=== PATIENT | female | born 1960 | race Caucasian/White ===

== ENCOUNTER 2018-05-16 14:09 | Emergency (ER) | payer SELFPAY ==
[2018-05-16 14:10] VITALS: BP 170/80; PULSE 124; RESP 16; TEMP 35.9; O2SAT 96; BMI 25.0
--- NOTE | 2018-05-16 14:19 | CT_ITS ---
STUDY: CT ABDOMEN AND PELVIS WITH CONTRAST REASON FOR EXAM: Female, 58 years old. Right rib pain following a fall. RADIATION DOSAGE (If Supplied By Facility): CTDIvol = ( 9.20 ) mGy, DLP = ( 642.32 ) mGycm TECHNIQUE: Transaxial images were obtained from the dome of the diaphragm to the symphysis pubis without oral contrast. 100 ml of Isovue 300 contrast was administered. Sagittal and coronal images were reconstructed. Individualized dose optimization techniques were used for this CT. COMPARISON: None. FINDINGS: Increased markings at the lung bases with areas of confluence suggestive of atelectasis. With the patient's history of trauma, this may represent contusions. The visualized portions of the heart are within normal limits. There is decreased attenuation of the liver consistent with steatosis. Normal gallbladder and extrahepatic biliary system. Normal spleen. Normal pancreas. Normal bilateral adrenal glands. Mild right hydronephrosis and proximal right hydroureter. Ureteral pelvic junction obstruction should Normal left kidney. Normal visualized stomach. Normal small intestine. There are multiple colonic diverticula consistent with diverticulosis. The appendix is visualized and appears normal. Normal abdominal aorta. Normal inferior vena cava. Normal retroperitoneum. Normal urinary bladder. There is absence of the uterus consistent with a prior hysterectomy. There is a small umbilical hernia containing fat. There are mild degenerative changes of the visualized lumbar spine. Nondisplaced fracture of the right 11th rib posterior lateral. CT/Abdomen/Pelvis W IV Cont ONLY IMPRESSION: Nondisplaced fracture involving the posterior-lateral aspect of the right 11th rib. Findings suggestive pulmonary atelectasis and/or contusions. Fatty infiltration of the liver. Electronically Signed: Jim Pantoja MD at 15:53 EST Tel [phone], Service support ,
--- NOTE | 2018-05-16 14:19 | CT_ITS ---
STUDY: CT CHEST WITH CONTRAST REASON FOR EXAM: Female, 58 years old. Right-sided rib pain following a fall. RADIATION DOSAGE (If Supplied By Facility): CTDIvol = ( 9.20 ) mGy, DLP = ( 642.32 ) mGycm TECHNIQUE: Transaxial imaging was performed following intravenous administration of 100 ml of Isovue 300 contrast material. Multiplanar coronal and sagittal images were reformatted. Individualized dose optimization techniques were used for this CT. COMPARISON: None. FINDINGS: Increased markings in the lower lobes with areas of confluence suggestive of atelectasis. With the patient's history of trauma, this may represent contusions. There is no demonstrated pleural abnormality. Normal heart and pericardium. Normal mediastinum. Normal hilar regions. Normal enhanced pulmonary arteries. Normal aorta arch and descending thoracic aorta. There are degenerative changes of the thoracic spine. Nondisplaced fracture involving the posterior-lateral aspect of the right 11th rib. There is no demonstrated abnormality of the visualized upper abdomen. CT/Chest WITH Contrast IMPRESSION: Increased markings at the lung bases with areas of confluence suggestive of possible atelectasis and/or contusions. Nondisplaced fracture along the posterior lateral aspect of the right 11th rib. Electronically Signed: Jim Pantoja MD at 15:55 EST Tel [phone], Service support ,
--- NOTE | 2018-05-16 14:22 | ED.VISSUMM ---
- ER Visit Summary Date of Service: 05/16/18 Chief Complaint: Fall History of Present Illness: The patient is a 58 F presenting after fall. This occurred on May 07. She states that she was looking at a house that was for sale. She fell down half a flight of steps. She lost her footing. She did hit her head but she did not lose consciousness. She complains of right thumb pain, right sided rib pain and abdominal pain. She has been taking ibuprofen at home. She has an appointment with her primary care physician on . Physical Examination: Vitals are stable. Patient is afebrile. Alert no acute distress. HEENT exam is unremarkable. Neck is nontender Lungs are clear and equal bilaterally. Right lateral chest wall tenderness with no crepitus Heart is regular and tachycardic Abdomen is right upper quadrant tenderness no rebound or guarding Extremities right thumb diffuse tenderness with painful range of motion Skin is warm and dry. No focal neurologic deficit. Remainder of exam is unremarkable. Emergency Department Course and Treatment: Right hand x-ray shows no acute fractures seen. Old avulsion fracture of the ulnar styloid. Patient was given a thumb spica splint. CT chest/abdomen pelvis shows increased markings at the lung bases with areas of confluence suggestive of possible atelectasis and/or contusions. Nondisplaced fracture along the posterior lateral aspect of the right 11th rib. Patient was given an incentive spirometer. She was given morphine, Zofran, IV fluids. Discussed with Dr. Garrido who recommends repeat imaging in 4-[address] Thorne covering for Dr Bryant and patient will follow-up in the office at scheduled appointment on . She is given a prescription for Daniel. She is advised to return to ED if worsening complaints. Disposition: Discharge home Impression: Right nondisplaced 11th rib fracture status post fall This note was generated with [employer] dictation software. It may contain incorrect words, spelling, and punctuation that were not noted in review of the chart prior to signing ED Disposition - Plan for ED Patient: Chief Complaint: Chest Other Instructions: ED Fx Rib Prescriptions: Hydrocodone Bitart/Apap 5-325 [[place] 5MG-325MG] 1 tablet PO Q6H PRN PRN 3 Days #10 tablet PRN Reason: Pain Referrals: Luis Bryant MD [Primary Care Provider] -
[2018-05-16 14:56] LABS: Anion Gap 12 (5-15); BUN 6 mg/dL (7-18); BUN/Creat Ratio 7.3 RATIO (10-20); Calcium,Total 9.2 mg/dL (8.5-10.1); Chloride 109 mmol/L (98-107); Creatinine, Serum 0.82 mg/dL (0.55-1.02); EST Glomerular Filtration Rate 76 mL/min (>60); Est Glom Filt Rate - Afr Amer 92 mL/min (>60); Estimated Creatinine Clearance 64.26 ml/min; Glucose 124 mg/dL (74-106); Potassium 3.4 mmol/L (3.5-5.1); Sodium Level 145 mmol/L (136-145)
--- NOTE | 2018-05-16 15:14 | RAD_ITS ---
STUDY: X-RAY - RIGHT HAND REASON FOR EXAM: Female, 58 years old. Pain at the first metacarpophalangeal joint following a fall. TECHNIQUE: 3 view(s) of the hand. COMPARISON: None. FINDINGS: Normal radiocarpal articulation. Normal distal radioulnar joint. Old avulsion fracture of the ulnar styloid. Normal visualized carpal bones. Normal carpal articulations Normal carpometacarpal articulation of the thumb. Normal second through fifth carpometacarpal joints. Normal metacarpi. Normal metacarpophalangeal joint of the thumb. Normal interphalangeal joint of the thumb. Normal proximal and distal phalanges of the thumb. Normal metacarpophalangeal joints of the second through fifth fingers. Normal proximal and distal interphalangeal joints of the second through fifth fingers. Normal phalanges of the second through fifth fingers. The soft tissue structures are unremarkable. RAD/Hand Min 3 Views IMPRESSION: No acute fractures seen. Old avulsion fracture of the ulnar styloid. Electronically Signed: Jim Pantoja MD at 15:33 EST Tel [phone], Service support ,
--- NOTE | 2018-05-16 16:45 | ED.DEP ---
ED Disposition - Plan for ED Patient: Chief Complaint: Chest Other Instructions: ED Fx Rib Prescriptions: Hydrocodone Bitart/Apap 5-325 [[place] 5MG-325MG] 1 tablet PO Q6H PRN PRN 3 Days #10 tablet PRN Reason: Pain Referrals: Luis Bryant MD [Primary Care Provider] -
[2018-05-16] MEDS: Morphine 4 MG/ML Syringe IV (16:46)
[2018-05-16] MEDS: Ondansetron 4 MG/2 ML Vial IV (16:46)
[2018-05-16 17:17] VITALS: PULSE 95
== END 2018-05-16 17:39 | disposition home or self-care (01) ==
PROVIDERS: Emergency Provider Emergency Medicine; Family Provider Family Medicine; PCP Family Medicine
DX: S22.31XA Fracture of one rib, right side, initial encounter for closed fracture (principal); M79.644 Pain in right finger(s); R10.9 Unspecified abdominal pain; W10.9XXA Fall (on) (from) unspecified stairs and steps, initial encounter; Y93.9 Activity, unspecified; Y92.019 Unspecified place in single-family (private) house as the place of occurrence of the external cause; Y99.9 Unspecified external cause status
CPT/HCPCS: 71260; 73130; 74177; 80048; 96361; 96374; 96375; 99284; J7040; Q9967; J2405